=== PATIENT | male | born 1955 | race Asian ===

== ENCOUNTER 2021-06-30 08:00 | Emergency (ER) | payer OTHER ==
[~2021-06-30] VITALS: Ht 170.2 cm; Wt 77.1 kg
[2021-06-30 08:00] VITALS: BP 136/84
--- NOTE | 2021-06-30 08:01 | NUR ---
AAOX3, CAME TO ER C/O LEFT SIDE HEADACHE X 1 WEEK, ALSO C/O SWELLING, REDNESS AND BURNING SENSATION TO HIS SCALP AND FOREHEAD. RESP IS EVEN AND UNLABORED WITH NO APPARENT DISTRESS NOTED. AWAITING MD FOR IVAN.
--- NOTE | 2021-06-30 08:07 | NUR ---
DR YODER AT FOR EVAL.
[2021-06-30] MEDS ORDERED: VALA100026 PO (08:19)
[2021-06-30] MEDS ORDERED: PRED50TA PO (08:19)
== END 2021-06-30 08:30 | disposition home or self-care (01) ==
LOC: ER 08:30
DX: B02.9 Zoster without complications (principal); Z79.899 Other long term (current) drug therapy